=== PATIENT | male | born 1955 | race American Indian/Alaskan Native ===

== ENCOUNTER 2017-03-18 18:53 | Emergency (ER) | payer MEDICAID ==
[2017-03-18 20:32] LABS: Basophils % (Auto) 0.5 % (0.0-1.8); Hematocrit 37.1 % (35.5-45.6); Hemoglobin 12.1 gm/dl (11.8-15.2); Mean Corpuscular HGB Conc 33 % (32-34); Mean Corpuscular Hemoglobin 32 pg (28-32); Mean Corpuscular Volume 98 fl (84-94); Platelet Count 218 K/mm3 (140-440); Red Blood Count 3.78 M/mm3 (3.65-5.03); Red Cell Distribution Width 13.9 % (13.2-15.2); White Blood Count 5.8 K/mm3 (4.5-11.0)
[2017-03-18 20:38] VITALS: BP 115/70
[2017-03-18] MEDS ORDERED: BABY ASPIRIN PO ONE (20:51)
[2017-03-18 20:53] LABS: Anion Gap 19 mmol/L; BUN/Creatinine Ratio 20; Blood Urea Nitrogen 12 mg/dL (9-20); Calcium 9.7 mg/dL (8.4-10.2); Carbon Dioxide 27 mmol/L (22-30); Chloride 101.5 mmol/L (98-107); Glucose 70 mg/dL (75-100); Sodium 143 mmol/L (137-145)
--- NOTE | 2017-03-18 21:09 | Emergency Department Report ---
ED Chest Pain HPI - General Chief Complaint: Chest Pain Stated Complaint: CHEST PAIN Time Seen by Provider: 03/18/17 20:18 Source: EMS Mode of arrival: Stretcher Limitations: No Limitations - History of Present Illness Initial Comments: 61-year-old [place] male presents to the emergency department with complaint of sharp midsternal chest pains have been going on for the past 2 days. He denies any shortness of breath, nausea, vomiting. He has not taken anything for her symptoms prior to presentation. He drank about 2 beers and some vodka earlier in the day. Family is bedside and says that he does not appear intoxicated to them. He has a past medical history of hypertension, GERD. He denies ever having an ND, CVA, PE/DVT. He is a tobacco smoker. No recent travel or sick contacts at home. Severity scale (0 -10): 6 - Related Data Previous Rx's Medication Instructions Recorded Last Taken Type Aspirin [Aspirin BABY CHEW TAB] 81 mg PO QDAY #30 tab.chew 04/09/15 Unknown Rx Lisinopril [Zestril TAB] 10 mg PO QDAY #30 tablet 04/09/15 Unknown Rx Metoprolol [Lopressor TAB] 12.5 mg PO BID #60 tablet 04/09/15 Unknown Rx Pantoprazole [Protonix TAB] 40 mg PO QDAY #30 tablet 04/09/15 Unknown Rx Simvastatin [Zocor TAB] 20 mg PO QHS #30 tablet 04/09/15 Unknown Rx Allergies Allergy/AdvReac Type Severity Reaction Status Date / Time No Known Allergies Allergy Verified 03/18/17 19:01 Heart Score - HEART Score History: Slightly suspicious EKG: Non-specific Age: 45-65 Risk factors: 1-2 risk factors Troponin: < normal limit HEART Score: 3 - Critical Actions Critical Actions: 0-3 pts:0.9-1.7%risk of adverse cardiac event.Candidate for discharge ED Review of Systems ROS: Stated complaint: CHEST PAIN Other details as noted in HPI Comment: All other systems reviewed and negative Constitutional: denies: chills, fever Eyes: denies: eye pain, eye discharge, vision change ENT: denies: ear pain, throat pain Respiratory: denies: cough, shortness of breath, wheezing Cardiovascular: chest pain. denies: palpitations Gastrointestinal: denies: abdominal pain, nausea, diarrhea Genitourinary: denies: urgency, dysuria Musculoskeletal: denies: back pain, joint swelling, arthralgia Skin: denies: rash, lesions Neurological: denies: headache, weakness, paresthesias ED Past Medical Hx - Past Medical History Previous Medical History?: Yes Hx Hypertension: Yes Additional medical history: CHF - Social History Smoking Status: Never Smoker Substance Use Type: Alcohol - Medications Home Medications: Home Medications Medication Instructions Recorded Confirmed Last Taken Type Aspirin [Aspirin BABY CHEW TAB] 81 mg PO QDAY #30 tab.chew 04/09/15 Unknown Rx Lisinopril [Zestril TAB] 10 mg PO QDAY #30 tablet 04/09/15 Unknown Rx Metoprolol [Lopressor TAB] 12.5 mg PO BID #60 tablet 04/09/15 Unknown Rx Pantoprazole [Protonix TAB] 40 mg PO QDAY #30 tablet 04/09/15 Unknown Rx Simvastatin [Zocor TAB] 20 mg PO QHS #30 tablet 04/09/15 Unknown Rx ED Physical Exam - General Limitations: No Limitations - Other Other exam information: GENERAL: The patient is well-developed well-nourished. HENT: Normocephalic. Atraumatic. Patient has moist mucous membranes. EYES: Extraocular motions are intact. Pupils equal reactive to light bilaterally. NECK: Supple. Trachea is midline. CHEST/LUNGS: Clear to auscultation. There is no respiratory distress noted. HEART/CARDIOVASCULAR: Regular. There is no tachycardia. There is no gallop rub or murmur. ABDOMEN: Abdomen is soft, nontender. Patient has normal bowel sounds. There is no abdominal distention. SKIN: Skin is warm and dry. NEURO: The patient is awake, alert, and oriented. The patient is cooperative. The patient has no focal neurologic deficits. The patient has normal speech and gait. MUSCULOSKELETAL: There is no tenderness or deformity. There is no limitation range of motion. There is no evidence of acute injury. ED Course Vital Signs 03/18/17 03/18/17 03/18/17 19:01 19:06 19:39 Temperature Pulse Rate 76 79 83 Respiratory 16 15 15 Rate Blood Pressure 118/76 O2 Sat by Pulse 96 98 Oximetry 03/18/17 03/18/17 03/18/17 19:43 20:00 20:12 Temperature 97.9 F Pulse Rate 87 Respiratory 17 18 Rate Blood Pressure 108/72 O2 Sat by Pulse 97 98 Oximetry 03/18/17 20:31 Temperature Pulse Rate Respiratory Rate Blood Pressure 115/70 O2 Sat by Pulse Oximetry AZALIA score - Azalia Score Age > 65: (0) No Aspirin use within the Past 7 Days: (0) No 3 or more CAD Risk Factors: (0) No 2 or more Angina events in past 24 hrs: (1) Yes Known CAD with more than 50% Stenosis: (0) No Elevated Cardiac Markers: (0) No ST Deviation Greater than 0.5mm: (0) No AZALIA Score: 1 ED Medical Decision Making - Lab Data Result diagrams: 03/18/17 19:05 03/18/17 19:05 - EKG Data -: EKG Interpreted by Me EKG shows normal: sinus rhythm (ventricular bigeminy), axis, intervals ( prolonged OK interval), QRS complexes (LVH), ST-T waves Rate: normal - EKG Data When compared to previous EKG there are: changes noted (previous EKG did not show bigeminy or prolonged OK interval) Interpretation: other (sinus rhythm, ventricular bigeminy, prolonged OK interval ) - Medical Decision Making This is a 61-year-old male presents to the emergency department with complaint of chest pain going on for the past 2 days. At first, the patient started off in the emergency department very agitated and disrespectful. He was making demands and using inappropriate language. However I was able to talk him into calming down and I did apologize for his weight this far in the emergency department, despite the fact that it was a shorter period of time than most of the people in the department at that time. At that point we're able to start over and he gave me information regarding his presentation and we did a history and physical. His EKG showed ventricular bigeminy and a prolonged OK interval but otherwise no ST elevation ND. His labs were mostly unremarkable including a negative troponin 1. However at this point in the workup, the patient wanted to be discharged home. He did not want the chest x-ray done. He was not willing to have any further labs done and he certainly was not willing to be admitted. I explained to him that he has not had a full cardiac workup previously, he continues to have some chest discomfort, and that despite the negative workup thus far that coronary artery disease as the source of his chest pain cannot be ruled out. My recommendation was for admission to the hospital for serial troponins, possible cardio consultation and/or stress test. I explained to him that the risk of leaving included continued chest pain, myocardial infarction, disability, coma and even . He is awake and alert, does not appear acutely intoxicated, and appears to be of sound mind. So despite understanding the risks of leaving, he still wants to do so and has signed out AGAINST MEDICAL ADVICE. I still make sure to give him some referrals for cardiology and he understands that he can return to the emergency department if he changes his mind about further evaluation, admission, or any acute distress. - Differential Diagnosis ND, PE, gastritis, GERD Critical Care Time: No Critical care attestation.: If time is entered above; I have spent that time in minutes in the direct care of this critically ill patient, excluding procedure time. ED Disposition Clinical Impression: Chest pain Qualifiers: Chest pain type: unspecified Qualified Code(s): R07.9 - Chest pain, unspecified Disposition: DC-07 LEFT AGAINST MED ADVICE Is pt being admited?: No Condition: Stable Instructions: Chest Pain (ED) Additional Instructions: Please follow up with a senior physical therapist in the next few days. Return to the emergency department if you change your mind about admission or further evaluation or with any acute distress. Referrals: BIN COLLINS MD [Staff Physician] - 3-5 Days Forms: AMA Form Time of Disposition: 21:19
== END 2017-03-18 21:47 | disposition left against medical advice (07) ==
LOC: ED 18:53
DX: R07.81 Pleurodynia (principal); I10 Essential (primary) hypertension
CPT/HCPCS: 36415; 80048; 84484; 85025; 93005; 93010